=== PATIENT | female | born 1955 | race American Indian/Alaskan Native ===

== ENCOUNTER 2018-05-31 14:54 | Emergency (ER) | payer MEDICARE ==
--- NOTE | 2018-05-31 15:06 | Emergency Department Report ---
Blank Doc - Documentation Documentation: This is a 62-year-old female that presents stroke symptoms. Son is present and stated that home RN was instructed patient to go the ED for stroke symptoms. Son said RN noticed this 2 weeks ago but told son today. Patient and son denies any deference. PMH: Stroke, left sided. Speaking in full sensations. This initial assessment diagnostic orders/clinical plan/treatment(s) is/are subject to change based on patient's health status, clinical progression and re- assessment by fellow clinical providers in the ED. Further treatment and workup at subsequent clinical providers discretion. Patient/guardians urged not to elope from ED s their condition may be serious if not clinically assessed and managed. Initial orders include: 1-Patient sent to MAIN ED for further evaluation and treatment 2- Will perform Stroke labs 3- CT head
[2018-05-31 16:10] LABS: Basophils % (Auto) 0.6 % (0.0-1.8); Eosinophils # (Auto) 0.2 K/mm3 (0.0-0.4); Eosinophils % (Auto) 3.9 % (0.0-4.3); Hematocrit 31.6 % (30.3-42.9); Hemoglobin 10.4 gm/dl (10.1-14.3); Lymphocytes # (Auto) 1.9 K/mm3 (1.2-5.4); Lymphocytes % (Auto) 39.2 % (13.4-35.0); Mean Corpuscular HGB Conc 33 % (30-34); Mean Corpuscular Volume 84 fl (79-97); Monocytes # (Auto) 0.3 K/mm3 (0.0-0.8); Monocytes % (Auto) 5.2 % (0.0-7.3); Platelet Count 329 K/mm3 (140-440); Red Blood Count 3.78 M/mm3 (3.65-5.03); Red Cell Distribution Width 17.3 % (13.2-15.2)
[2018-05-31 16:22] LABS: INR 0.91 (0.87-1.13); Partial Thromboplastin Time 30.3 Sec. (24.2-36.6); Thrombin Time 16.7 Sec. (15.1-19.6)
[2018-05-31 16:26] LABS: Creatine Kinase MB 1.3 ng/mL (0.0-4.0)
[2018-05-31 16:28] LABS: Alanine Aminotransferase 7 units/L (7-56); Albumin 4.4 g/dL (3.9-5); BUN/Creatinine Ratio 11; Blood Urea Nitrogen 15 mg/dL (7-17); Calcium 9.9 mg/dL (8.4-10.2); Hemolysis Index 3
--- NOTE | 2018-05-31 17:54 | Cat Scan Report ---
FINAL REPORT PROCEDURE: CT head without contrast. TECHNIQUE: Computerized tomography of the head was performed without contrast material. HISTORY: Stroke symptoms. COMPARISON: No prior studies are available for comparison. FINDINGS: There is a very large area of encephalomalacia involving the right frontal, temporal, parietal and oc cipital lobes. There is evidence of chronic ischemic white matter disease in the right cerebral hemis phere. The right lateral ventricle is dilated due to the extensive encephalomalacia. The left cerebra l hemisphere appears normal. There are no mass lesions. There is no intracranial hemorrhage. The gilbert ent has had a very large craniectomy performed on the right side. This includes portions of the right temporal bone, the frontal bone and the right parietal bone. The scalp overlying this large defect h as a concave indentation. The mastoid air cells are clear. The paranasal sinuses are clear as far as visualized. IMPRESSION: Previous large right-sided craniectomy. Severe encephalomalacia involving the right cerebral hemisphe re with compensatory dilatation of the right lateral ventricle. No definite signs of acute disease.
--- NOTE | 2018-05-31 21:33 | Emergency Department Report ---
ED General Adult HPI - General Chief complaint: Weakness Stated complaint: STROKE SYMPTOMS Time Seen by Provider: 05/31/18 15:01 Source: family Mode of arrival: Ambulatory Limitations: Physical Limitation - History of Present Illness Initial comments: 62-year-old female with a prior history of a craniectomy presents after patient was brought to the ER by her son. Since states that the home health care nurse wanted the patient to be evaluated for complaint that have been present for the past 2 days. Patient currently denies any weakness. Patient denies any changes in her speech. Patient states that she feels fine. Patient denies any chest pain shortness of breath. Patient has had no recent falls. Patient has had no vomiting. Severity scale (0 -10): 0 - Related Data Previous Rx's Medication Instructions Recorded Last Taken Type Bisacodyl [Dulcolax suppos] 10 mg WA QDAY PRN #10 supp.rect 01/31/13 Unknown Rx Docusate Sodium [Colace ORAL LIQ] 100 mg PO BID #60 oral.liqd 01/31/13 Unknown Rx Lansoprazole Solutab [Prevacid 30 mg FEEDTUBE QDAY #30 tab.rapdis 01/31/13 Unknown Rx Solutab] Lisinopril [Zestril TAB] 20 mg PO QDAY #30 tablet 01/31/13 Unknown Rx Metoprolol [Lopressor TAB] 25 mg PO BID #60 tablet 01/31/13 Unknown Rx Simvastatin (Nf) [Zocor TAB] 20 mg PO QHS #30 tablet 01/31/13 Unknown Rx amLODIPine [Norvasc] 10 mg PO DAILY #30 tablet 01/31/13 Unknown Rx levETIRAcetam [Keppra ORAL LIQ] 500 mg PO BID #60 bottle 01/31/13 Unknown Rx levoFLOXacin [Levaquin TAB] 500 mg PO Q24HR #6 tablet 01/31/13 Unknown Rx Aspirin [Aspirin TAB] 325 mg PO QDAY #30 tablet 02/01/13 Unknown Rx Ciprofloxacin HCl [Ciprofloxacin 500 mg PO Q12HR #14 tab 07/13/15 Unknown Rx TAB] traMADol [Ultram] 50 mg PO Q6HR PRN #15 tablet 07/13/15 Unknown Rx Allergies Allergy/AdvReac Type Severity Reaction Status Date / Time No Known Allergies Allergy Unverified 01/09/13 20:06 ED Review of Systems ROS: Stated complaint: STROKE SYMPTOMS Other details as noted in HPI Constitutional: denies: chills, fever Eyes: denies: eye pain, eye discharge, vision change ENT: denies: ear pain, throat pain Respiratory: denies: cough, shortness of breath, wheezing Cardiovascular: denies: chest pain, palpitations Endocrine: no symptoms reported Gastrointestinal: denies: abdominal pain, nausea, diarrhea Genitourinary: denies: urgency, dysuria, discharge Musculoskeletal: denies: back pain, joint swelling, arthralgia Skin: denies: rash, lesions Neurological: denies: headache, weakness, paresthesias Psychiatric: denies: anxiety, depression Hematological/Lymphatic: denies: easy bleeding, easy bruising ED Past Medical Hx - Past Medical History Previous Medical History?: Yes Hx Hypertension: Yes Hx CVA: Yes (left sided weakness) Hx Congestive Heart Failure: No Hx Diabetes: No Hx Kidney Stones: Yes Hx Asthma: No Hx COPD: No - Surgical History Past Surgical History?: Yes Additional Surgical History: x 3. right leg surgery- pin placed in ankle after ankle fx - Social History Smoking Status: Never Smoker Substance Use Type: None - Medications Home Medications: Home Medications Medication Instructions Recorded Confirmed Last Taken Type Bisacodyl [Dulcolax suppos] 10 mg WA QDAY PRN #10 supp.rect 01/31/13 Unknown Rx Docusate Sodium [Colace ORAL LIQ] 100 mg PO BID #60 oral.liqd 01/31/13 Unknown Rx Lansoprazole Solutab [Prevacid 30 mg FEEDTUBE QDAY #30 tab.rapdis 01/31/13 Unknown Rx Solutab] Lisinopril [Zestril TAB] 20 mg PO QDAY #30 tablet 01/31/13 Unknown Rx Metoprolol [Lopressor TAB] 25 mg PO BID #60 tablet 01/31/13 Unknown Rx Simvastatin (Nf) [Zocor TAB] 20 mg PO QHS #30 tablet 01/31/13 Unknown Rx amLODIPine [Norvasc] 10 mg PO DAILY #30 tablet 01/31/13 Unknown Rx levETIRAcetam [Keppra ORAL LIQ] 500 mg PO BID #60 bottle 01/31/13 Unknown Rx levoFLOXacin [Levaquin TAB] 500 mg PO Q24HR #6 tablet 01/31/13 Unknown Rx Aspirin [Aspirin TAB] 325 mg PO QDAY #30 tablet 02/01/13 Unknown Rx Ciprofloxacin HCl [Ciprofloxacin 500 mg PO Q12HR #14 tab 07/13/15 Unknown Rx TAB] traMADol [Ultram] 50 mg PO Q6HR PRN #15 tablet 07/13/15 Unknown Rx ED Physical Exam - General Limitations: Physical Limitation General appearance: alert, in no apparent distress, other (awake; comfortable) - Head Head exam: Present: normocephalic, other (scar indicative of craniectomy) - Eye Eye exam: Present: normal appearance - ENT ENT exam: Present: mucous membranes moist - Neck Neck exam: Present: normal inspection - Respiratory Respiratory exam: Present: normal lung sounds bilaterally. Absent: respiratory distress - Cardiovascular Cardiovascular Exam: Present: regular rate, normal rhythm. Absent: systolic murmur, diastolic murmur, rubs, gallop - GI/Abdominal GI/Abdominal exam: Present: soft, normal bowel sounds - Extremities Exam Extremities exam: Present: normal inspection - Back Exam Back exam: Present: normal inspection - Neurological Exam Neurological exam: Present: alert, oriented X3, CN II-XII intact, other (residual deficit in left upper extremity; strength 5/5 bilaterally in right upper and right lower extremity) - Psychiatric Psychiatric exam: Present: normal affect, normal mood - Skin Skin exam: Present: warm, dry, intact, normal color. Absent: rash ED Course Vital Signs 05/31/18 05/31/18 15:03 22:00 Temperature 97.9 F 98.2 F Pulse Rate 66 71 Respiratory 18 16 Rate Blood Pressure 142/99 Blood Pressure 142/94 [Right] O2 Sat by Pulse 99 100 Oximetry ED Medical Decision Making - Lab Data Result diagrams: 05/31/18 15:44 05/31/18 15:44 - Medical Decision Making Patient is sitting in her wheelchair in no acute distress. Patient to be discharged to follow up with neurology. - Differential Diagnosis Dehydration; ANEMia; Intracranial Bleed Critical care attestation.: If time is entered above; I have spent that time in minutes in the direct care of this critically ill patient, excluding procedure time. ED Disposition Clinical Impression: Weakness Disposition: DC-01 TO HOME OR SELFCARE Is pt being admited?: No Condition: Stable Instructions: Weakness (ED) Referrals: ALBAN CAGLE MD [Primary Care Provider] - 3-5 Days Time of Disposition: 21:32 Print Language: OCCITAN
[2018-05-31 22:02] VITALS: BP 142/94
== END 2018-05-31 22:03 | disposition home or self-care (01) ==
LOC: ED 14:54
DX: R53.1 Weakness (principal); I10 Essential (primary) hypertension; Z86.73 Personal history of transient ischemic attack (TIA), and cerebral infarction without residual deficits; Z79.899 Other long term (current) drug therapy
CPT/HCPCS: 36415; 70450; 80053; 82550; 82553; 82962; 84484; 85025; 85610; 85670; 85730; 93005; 93010